=== PATIENT | male | born 1980 | race Caucasian/White ===

== ENCOUNTER 2024-04-29 16:24 | Emergency (ER) | payer OTHER ==
[~2024-04-29] VITALS: Ht 165.1 cm; Wt 110.0 kg
[2024-04-29 16:29] VITALS: BP 165/91; PULSE 101; RESP 18; TEMP 98; O2SAT 99
[2024-04-29] MEDS ORDERED: TETANUS, DIPHTHERIA, PERTUSSIS VAC/PF 0.5ML (>10YR OLD) IM ONE ×2 (18:00→20:35)
[2024-04-29] MEDS: BACITRACIN ZINC OINT UDPKT TOP NR (19:31)
[2024-04-29] MEDS: LIDOCAINE HCL/PF 1% 10 MG/ML 5ML VIAL INFIL NR (19:31)
[2024-04-29] MEDS: ACETAMINOPHEN 325MG TABLET PO NR (19:31)
[2024-04-29] MEDS ORDERED: BACITRACIN ZINC OINT UDPKT TOP NR (20:15)
[2024-04-29] MEDS ORDERED: BO1 TP (20:17)
[2024-04-29] MEDS ORDERED: IBUP-2029 PO (20:17)
[2024-04-29] MEDS ORDERED: CEPH500T MT (20:17)
== END 2024-04-29 21:26 | disposition home or self-care (01) ==
LOC: ER 16:24
DX: S81.012A Laceration without foreign body, left knee, initial encounter (principal); S60.512A Abrasion of left hand, initial encounter; S60.511A Abrasion of right hand, initial encounter; I10 Essential (primary) hypertension; E11.9 Type 2 diabetes mellitus without complications; Z88.5 Allergy status to narcotic agent; Z88.8 Allergy status to other drugs, medicaments and biological substances; Z91.041 Radiographic dye allergy status; W01.0XXA Fall on same level from slipping, tripping and stumbling without subsequent striking against object, initial encounter; Y93.89 Activity, other specified; Y92.89 Other specified places as the place of occurrence of the external cause; Y99.8 Other external cause status
CPT/HCPCS: 73562; 12002; 99283; J2003; Z7610 ×4; 90715